=== PATIENT | male | born 1995 | race Caucasian/White ===

== ENCOUNTER 2022-07-17 11:22 | Outpatient (CLI) | payer MEDICAID, SELFPAY ==
[2022-07-17 17:23] LABS: Chloride* 105 mmol/L (96-114); Potassium* 4.1 mmol/L (3.6-5.1); Sodium* 138 mmol/L (135-149)
[2022-07-17 17:26] LABS: Blood Urea Nitrogen* 19 mg/dL (5-24); Carbon Dioxide* 22 mmol/L (20-32); Cholesterol* 168 mg/dL (90-199); Creatinine* 0.8 mg/dL (0.5-1.5); Estimated Glomerular Filt Rate 126 ml/min
[2022-07-17 17:27] LABS: Calcium* 9.3 mg/dL (8.4-10.6); Glucose* 97 mg/dL (60-115); HDL Cholesterol* 38 mg/dL (>=40); LDL Cholesterol Calculated 110 mg/dL (<100); Triglycerides* 100 mg/dL (40-149)
== END 2022-07-17 11:23 | disposition home or self-care (01) ==
PROVIDERS: PCP Family Medicine; Visit Provider Family Medicine
DX: E78.5 Hyperlipidemia, unspecified (principal); F41.9 Anxiety disorder, unspecified; E66.9 Obesity, unspecified; Z13.1 Encounter for screening for diabetes mellitus
CPT/HCPCS: 80048; 80061